=== PATIENT | female | born 1990 | race Caucasian/White ===

== ENCOUNTER 2020-12-09 16:57 | Emergency (ER) | payer MEDICAID ==
[~2020-12-09] VITALS: Ht 162.6 cm; Wt 52.7 kg
[2020-12-09 17:02] VITALS: BP 113/86; Ht 162.6 cm; Wt 52.7 kg
[2020-12-09] MEDS ORDERED: VALIUM10 MG PO (17:03)
[2020-12-09 17:36] LABS: BASOPHILS 0.4 % (0-2); EOSINOPHILS 2.2 % (0-7); HEMATOCRIT 42.3 % (36.0-48.0); HEMOGLOBIN 14.7 g/dL (12-16); IMMATURE GRANULOCYTES 0.6 % (0-5); LYMPHOCYTE ABS# 3.68 10x3/uL (1.18-3.74); LYMPHOCYTES 32.3 % (15-50); MCH 31.7 pg (26.0-34.0); MCHC 34.8 g/dL (31.0-37.0); MCV 91.4 fL (80.0-100.0); MEAN PLATELET VOLUME 9.8 fL (7.4-10.4); MONOCYTES 10.6 % (2-11); NEUTROPHIL ABS# 6.13 10x3/uL (1.56-6.13); NEUTROPHILS 53.9 % (40-80); PLATELET COUNT 228 10x3/uL (130-400); RBC 4.63 10x6/uL (4.00-5.40); RDW 12.8 % (11.5-14.5); WBC 11.4 10x3/uL (4.8-10.8)
[2020-12-09 17:44] LABS: CALC OSMOLALITY 276 mosm/kg (275-300); CALCIUM 7.9 mg/dL (8.5-10.1); CARBON DIOXIDE 24.1 mmol/L (21.0-32.0); CHLORIDE - SERUM 105 mmol/L (98-107); CREATININE - SERUM 0.9 mg/dL (0.6-1.3); GLUCOSE 86 mg/dL (74-106); POTASSIUM - SERUM 3.7 mmol/L (3.5-5.1); SODIUM 138 mmol/L (136-145); UREA NITROGEN 17 mg/dL (7-18); eGFR NON AFRICAN AMERICAN 79 mL/min (90-120)
[2020-12-09 17:47] LABS: HCG SERUM NEGATIVE (NEGATIVE)
[2020-12-09 18:08] LABS: BILIRUBIN NEGATIVE (NEGATIVE); KETONE NEGATIVE (NEGATIVE); NITRITE NEGATIVE (NEGATIVE); UROBILINOGEN NORMAL mg/dL (< 2)
[2020-12-09 18:09] LABS: SQUAMOUS EPITHELIAL 0-5 HPF (0-4); WHITE CELLS - URINE 0-5 HPF (0-4)
[2020-12-09 18:11] LABS: ALBUMIN 3.5 g/dL (3.4-5.0); ALKALINE PHOSPHATASE 62 U/L (30-120); ALT (SGPT) 27 U/L (10-68); BILIRUBIN - TOTAL 1.06 mg/dL (0.2-1.3); HCG - QUANTITATIVE (MATERNAL) 0 mIU/mL
[2020-12-09] MEDS ORDERED: HYDROCODON-ACE1 EAC7 PO (20:58)
== END 2020-12-09 21:13 | disposition home or self-care (01) ==
LOC: D.ER 16:57
PROVIDERS: Family Medicine
DX: R10.30 Lower abdominal pain, unspecified (principal); N93.9 Abnormal uterine and vaginal bleeding, unspecified; E83.51 Hypocalcemia

== ENCOUNTER 2021-02-05 03:36 | Emergency (ER) | payer MEDICAID ==
[~2021-02-05] VITALS: Ht 162.6 cm; Wt 50.5 kg
[~2021-02-05 03:36] MED LIST: HYDROCODON-ACE1 EAC7 PO; VALIUM10 MG PO
[2021-02-05 03:41] VITALS: BP 111/56; Ht 162.6 cm; Wt 50.5 kg
[2021-02-05 04:08] LABS: BILIRUBIN NEGATIVE (NEGATIVE); KETONE NEGATIVE (NEGATIVE); NITRITE NEGATIVE (NEGATIVE); UROBILINOGEN NORMAL mg/dL (< 2)
[2021-02-05 04:11] LABS: AMORPHOUS SEDIMENT >1+ LPF (NONE SEEN); BACTERIA FEW HPF (NONE SEEN); SQUAMOUS EPITHELIAL 0-5 HPF (0-4); WHITE CELLS - URINE 0-5 HPF (0-4)
[2021-02-05] MEDS ORDERED: ULTRAM50 MG PO (04:11)
[2021-02-05] MEDS ORDERED: FLAGYL500 MG PO (04:12)
[2021-02-05 04:17] LABS: BASOPHILS 0.3 % (0-2); EOSINOPHILS 3.2 % (0-7); HEMATOCRIT 42.5 % (36.0-48.0); HEMOGLOBIN 14.5 g/dL (12-16); IMMATURE GRANULOCYTES 0.3 % (0-5); LYMPHOCYTE ABS# 2.57 10x3/uL (1.18-3.74); LYMPHOCYTES 24.8 % (15-50); MCH 31.6 pg (26.0-34.0); MCHC 34.1 g/dL (31.0-37.0); MCV 92.6 fL (80.0-100.0); MEAN PLATELET VOLUME 10.7 fL (7.4-10.4); NEUTROPHIL ABS# 6.57 10x3/uL (1.56-6.13); NEUTROPHILS 63.4 % (40-80); PLATELET COUNT 262 10x3/uL (130-400); RBC 4.59 10x6/uL (4.00-5.40); RDW 13.5 % (11.5-14.5); WBC 10.4 10x3/uL (4.8-10.8)
[2021-02-05] MEDS ORDERED: HYDROCODON-ACE1 EAC7 PO (04:24)
[2021-02-05 04:25] LABS: CALC OSMOLALITY 280 mosm/kg (275-300); CALCIUM 8.8 mg/dL (8.5-10.1); CARBON DIOXIDE 28.9 mmol/L (21.0-32.0); CHLORIDE - SERUM 107 mmol/L (98-107); CREATININE - SERUM 0.9 mg/dL (0.6-1.3); GLUCOSE 93 mg/dL (74-106); POTASSIUM - SERUM 4.5 mmol/L (3.5-5.1); SODIUM 141 mmol/L (136-145); UREA NITROGEN 13 mg/dL (7-18); eGFR NON AFRICAN AMERICAN 79 mL/min (90-120)
[2021-02-05 04:27] LABS: HCG SERUM NEGATIVE (NEGATIVE)
[2021-02-06 11:09] LABS: CHLAMYDIA TRACHOMATIS, NAA Negative (Negative)
== END 2021-02-05 04:59 | disposition home or self-care (01) ==
LOC: D.ER 03:36
PROVIDERS: Emergency Medicine
DX: N94.89 Other specified conditions associated with female genital organs and menstrual cycle (principal); J44.9 Chronic obstructive pulmonary disease, unspecified; Z72.0 Tobacco use

== ENCOUNTER → 2021-03-16 12:00 | Outpatient (CLI) | payer MEDICAID ==
[2021-02-05 03:41] VITALS: BMI 19.1
[~2021-03-16 12:00] MED LIST changes: +FLAGYL500 MG PO; +ULTRAM50 MG PO
== END | disposition home or self-care (01) ==
LOC: D.PAN 12:00 → EDSTATUS 03-18 07:00 → D.OPS 03-18 07:00
PROVIDERS: ATTEND Obstetrics & Gynecology
DX: Z31.84 Encounter for fertility preservation procedure (principal)